=== PATIENT | female | born 1985 | race Caucasian/White ===

== ENCOUNTER → 2018-11-20 | Outpatient (CLI) | payer OTHER ==
[~2018-11-20] MED LIST: BRIN10TA PO; MOTRIN600 MG PO; MOTRIN800 MG PO; PRENATAL1 TA1 PO; ULTRAM50 MG PO; ZITHROMAX Z PA250 MG PO
== END | disposition home or self-care (01) ==
LOC: MRI 11-15 15:00
DX: M54.42 Lumbago with sciatica, left side (principal)